=== PATIENT | female | born 1980 | race Caucasian/White ===

== ENCOUNTER → 2018-04-16 | Outpatient (CLI) | payer BC | LOC: LIGHT 15:58 | DX: E88.81 Metabolic syndrome and other insulin resistance (principal); R73.01 Impaired fasting glucose; E78.5 Hyperlipidemia, unspecified; E66.01 Morbid (severe) obesity due to excess calories; Z68.42 Body mass index [BMI] 45.0-49.9, adult; Z71.3 Dietary counseling and surveillance ==

== ENCOUNTER → 2018-04-18 | Outpatient (CLI) | payer BC ==
[~2018-04-18] VITALS: Ht 153.7 cm; Wt 116.6 kg
[~2018-04-18] MED LIST: PHENTERMINE15 MG PO
[2018-04-18 09:00] VITALS: BP 144/72; PULSE 76
== END ==
LOC: LIGHT 09:00
DX: E88.81 Metabolic syndrome and other insulin resistance (principal); R73.01 Impaired fasting glucose; E78.5 Hyperlipidemia, unspecified; E66.01 Morbid (severe) obesity due to excess calories; Z71.3 Dietary counseling and surveillance

== ENCOUNTER → 2018-05-16 | Outpatient (CLI) | payer BC ==
[~2018-05-16] VITALS: Ht 153.7 cm; Wt 114.5 kg
[2018-05-16 09:20] VITALS: BP 130/80; PULSE 64
== END ==
LOC: LIGHT 09:15
DX: E88.81 Metabolic syndrome and other insulin resistance (principal); R73.01 Impaired fasting glucose; E78.5 Hyperlipidemia, unspecified; E66.01 Morbid (severe) obesity due to excess calories; Z68.42 Body mass index [BMI] 45.0-49.9, adult; Z71.3 Dietary counseling and surveillance
CPT/HCPCS: G0463

== ENCOUNTER → 2018-06-13 | Outpatient (CLI) | payer BC ==
[~2018-06-13] VITALS: Ht 153.7 cm; Wt 114.1 kg
[2018-06-13 13:56] VITALS: BP 136/66; PULSE 80
== END ==
LOC: LIGHT 13:45
DX: E88.81 Metabolic syndrome and other insulin resistance (principal); R73.01 Impaired fasting glucose; E78.5 Hyperlipidemia, unspecified; E66.01 Morbid (severe) obesity due to excess calories; Z68.42 Body mass index [BMI] 45.0-49.9, adult; Z71.3 Dietary counseling and surveillance
CPT/HCPCS: G0463

== ENCOUNTER 2019-04-08 10:29 | Emergency (ER) | payer BC ==
[~2019-04-08] VITALS: Ht 152.4 cm; Wt 113.6 kg
[2019-04-08 10:46] VITALS: TEMP 98
[2019-04-08 11:50] VITALS: BP 124/57
[2019-04-08 12:14] LABS: BASO % 0.2 % (0.0-2.0); EOS # 0.2 (0.0-0.7); EOS % 1.7 % (0-4.0); GRAN # 5.8 (1.4-6.5); GRAN % 63.5 % (42.2-75.2); HEMATOCRIT 39.6 % (37.0-47.0); HEMOGLOBIN 12.9 g/dl (12.5-16.0); LYMPH # 2.5 (1.2-3.4); LYMPH % 27.3 % (20.0-51.0); MEAN CELL VOLUME 83 fl (80.0-100.0); MEAN CORPUSCULAR HEMOGLOBIN 27 pg (27.0-31.0); MEAN CORPUSCULAR HGB CONC 33 g/dl (33.0-37.0); MEAN PLATELET VOLUME 9.5 fl (7.4-10.4); MONO # 0.6 (0.1-0.6); PLATELET COUNT 329 K/mm3 (130-400); RED BLOOD COUNT 4.78 M/mm3 (4.10-5.30)
[2019-04-08 12:25] LABS: ALANINE AMINOTRANSFERASE 28 U/L (9-52); ALBUMIN 4.1 gm/dL (3.5-5.0); ALKALINE PHOSPHATASE 65 U/L (50-136); ANION GAP 7 mmol/L (7-16); AST,SGOT 25 U/L (15-37); BILIRUBIN,TOTAL 0.3 mg/dL (0.0-1.0); BLOOD UREA NITROGEN 11 mg/dL (7-17); C-REACTIVE PROTEIN 0.8 mg/dL (0.0-0.9); CARBON DIOXIDE 28 mmol/L (22-30); CHLORIDE 103 mmol/L (98-107); CREATININE, serum 0.71 (0.52-1.25); GLUCOSE 100 mg/dL (74-106); POTASSIUM 4.2 mmol/L (3.4-5.0); SODIUM 138 mmol/L (137-145); TOTAL PROTEIN 7.8 gm/dL (6.4-8.2)
[2019-04-08 12:33] LABS: TROPONIN-I < 0.012 ng/mL (0.000-0.035)
[2019-04-08] MEDS ORDERED: ANTIVERT 12.512.5 MG PO (12:42)
[2019-04-08 13:22] LABS: COLLECTION METHOD CLEAN CATCH
[2019-04-08 13:27] LABS: PH 7 (5-8); SQUAMOUS EPITHELIAL 0-2 /hpf; URINE APPEARANCE Clear; URINE BACTERIA None Seen /hpf; URINE BILIRUBIN Negative (NEGATIVE); URINE BLOOD 3+ (NEGATIVE); URINE COLOR Straw; URINE GLUCOSE Negative (NEGATIVE); URINE KETONE Negative (NEGATIVE); URINE LEUKOCYTE ESTERASE Negative (NEGATIVE); URINE NITRATE Negative (NEGATIVE); URINE PROTEIN(semi-quant) Negative (NEGATIVE); URINE RBC 0-2 /hpf; URINE UROBILINOGEN Negative (NEGATIVE)
[2019-04-08 13:42] VITALS: PULSE 61
== END 2019-04-08 13:43 | disposition home or self-care (01) ==
LOC: COL.ER 10:29
PROVIDERS: Physician Assistant
DX: R42 Dizziness and giddiness (principal); Z88.8 Allergy status to other drugs, medicaments and biological substances

== ENCOUNTER → 2019-08-20 | Outpatient (CLI) | payer BC ==
[~2019-08-20] MED LIST changes: +ANTIVERT 12.512.5 MG PO
== END ==
LOC: MC.RAD 15:00
DX: Z12.31 Encounter for screening mammogram for malignant neoplasm of breast (principal)

== ENCOUNTER → 2021-05-26 | Outpatient (CLI) | payer BC | LOC: MC.RAD 07:15 | DX: Z12.31 Encounter for screening mammogram for malignant neoplasm of breast (principal) ==

== ENCOUNTER → 2022-12-19 | Outpatient (CLI) | payer BC | LOC: CANSCHCLI → MC.RAD 07:24 | DX: Z12.31 Encounter for screening mammogram for malignant neoplasm of breast (principal) ==